=== PATIENT | male | born 1980 | race Caucasian/White ===

== ENCOUNTER 2018-01-13 07:23 | Emergency (ER) | payer OTHER ==
[2018-01-13 07:29] VITALS: BP 140/92
[2018-01-13] MEDS ORDERED: CLINDAMYCIN HCL 150 MG CAPSULE PO ONE (08:33)
--- NOTE | 2018-01-13 08:39 | ER Document Report ---
ED General - General Chief Complaint: Jaw Pain Stated Complaint: JAW PAIN Time Seen by Provider: 01/13/18 08:02 TRAVEL OUTSIDE OF THE [place] IN LAST 30 DAYS: No - HPI Patient complains to provider of: Right jaw pain Notes: Patient coming in for evaluation of rectal pain. Patient states approximately a week ago had a small pustule on the angle of the mandible on the right side that he tried to express pus himself. Patient states since that time increased swelling greatly increased over the last 24 hours with pain going up the rest of his face and down the rest of his neck. Patient denies any fevers chills nausea vomiting diarrhea. Patient denies any recent dental work. Denies any recent antibiotics. Patient resting comfortably on my evaluation states slight dry mouth no other critical pathology. - Related Data Allergies/Adverse Reactions: No Known Allergies Allergy (Verified 01/13/18 07:24) Past Medical History - Social History Smoking Status: Current Every Day Smoker Chew tobacco use (# tins/day): No Frequency of alcohol use: Occasional Drug Abuse: Marijuana Family History: Reviewed & Not Pertinent Patient has suicidal ideation: No Patient has homicidal ideation: No Renal/ Medical History: Denies: Hx Peritoneal Dialysis Past Surgical History: Reports: Hx Orthopedic Surgery Review of Systems - Review of Systems Constitutional: No symptoms reported EENT: Other - Right jaw pain Cardiovascular: No symptoms reported Respiratory: No symptoms reported Gastrointestinal: No symptoms reported Genitourinary: No symptoms reported Male Genitourinary: No symptoms reported Musculoskeletal: No symptoms reported Skin: No symptoms reported Hematologic/Lymphatic: No symptoms reported Neurological/Psychological: No symptoms reported Physical Exam - Vital signs Vitals: Temp Pulse Resp BP Pulse Ox 98.3 F 89 16 140/92 H 94 01/13/18 07:27 01/13/18 07:27 01/13/18 07:27 01/13/18 07:27 01/13/18 07:27 Interpretation: Normal - General General appearance: Appears well, Alert - HEENT Head: Normocephalic, Atraumatic Eyes: Normal Pupils: PERRL Sinus: Normal Nasal: Normal Mouth/Lips: Other - Patient with a small nodule at the angle of the mandible approximately 4 cm from the mentum of the mandible. Patient small nodule is approximately 0.5 x 0.5 cm in size. Slight erythema no obvious pustule formation. Painful to palpation freely mobile. Patient has a prominence of the right side of [place]'s duct of the submandibular gland there is no tenderness of the submandibular gland prominence no palpable stones this looks to be more likely congenital for the patient there is also slight prominence of the left. Examination the teeth reveal a filling tooth #30 however is is pain to percussion there is no signs of gingival cellulitis no signs of dental abscess. Bedside ultrasound used to evaluate the small nodule no signs of abscess formation or fluid collection is drainable. Possibility of prominent lymph node versus development of a furuncle Mucous membranes: Normal Pharynx: Normal - Respiratory Respiratory status: No respiratory distress Chest status: Nontender Breath sounds: Normal Chest palpation: Normal - Cardiovascular Rhythm: Regular Heart sounds: Normal auscultation Murmur: No - Abdominal Inspection: Normal Distension: No distension Bowel sounds: Normal Tenderness: Nontender Organomegaly: No organomegaly - Back Back: Normal, Nontender - Extremities General upper extremity: Normal inspection, Nontender, Normal color, Normal ROM , Normal temperature General lower extremity: Normal inspection, Nontender, Normal color, Normal ROM , Normal temperature, Normal weight bearing. No: Kristina's sign - Neurological Neuro grossly intact: Yes Cognition: Normal Orientation: AAOx4 Tonya Coma Scale Eye Opening: Spontaneous Tonya Coma Scale Verbal: Oriented Newborn Coma Scale Motor: Obeys Commands Tonya Coma Scale Total: 15 Speech: Normal Motor strength normal: LUE, RUE, LLE, RLE Sensory: Normal - Psychological Associated symptoms: Normal affect, Normal mood - Skin Skin Temperature: Warm Skin Moisture: Dry Skin Color: Normal Course - Re-evaluation Re-evalutation: 01/13/18 14:55 Possibility of developing underlying infection. Troponin less than. We will go ahead and cover the patient with clindamycin and concerns the patient states he discharged to manually express pus from a recent pustule or pimple. Patient will be discharged home follow-up primary care physician. Natanael airway compromise patient says the signs of early sepsis. - Vital Signs Vital signs: Temp Pulse Resp BP Pulse Ox 98.3 F 89 16 140/92 H 94 01/13/18 07:27 01/13/18 07:27 01/13/18 07:27 01/13/18 07:27 01/13/18 07:27 Discharge - Discharge Clinical Impression: Furuncle Disposition: HOME, SELF-CARE Instructions: Family Physicians / Practices, Folliculitis ([facility]), Lymphadenopathy ([facility]) Additional Instructions: Your evaluation today reveals what looks to be a prominent lymph node on the right side of your face causing some swelling more likely this is from your recent home treatment of what sounds like to be developing folliculitis or small little pustule on that side. Am concerned that you may have an underlying infection of the lymph nodes at this time there is no abscess formation or new fluid to be drained on bedside ultrasound. I recommended we start you on antibiotic of clindamycin. Please continue to monitor the area avoid any shaving. Would recommend no further self treatment of any small pustules. If her symptoms continue to worsen would recommend returning to the ER following up with her primary care doctors listed. For pain control would recommend taking Motrin 600 mg along with Tylenol 650 mg 3 times a day. For severe pain he may use the Ultram provided. Prescriptions: Clindamycin HCl 150 mg PO QID 7 Days capsule Tramadol HCl [Ultram 50 mg Tablet] 50 mg PO ASDIR PRN #14 tablet PRN Reason: Forms: Return to Work
== END 2018-01-13 08:49 | disposition home or self-care (01) ==
LOC: ER 07:23
DX: L02.92 Furuncle, unspecified (principal); R68.84 Jaw pain; F17.200 Nicotine dependence, unspecified, uncomplicated; F12.10 Cannabis abuse, uncomplicated
CPT/HCPCS: 99283

== ENCOUNTER 2018-01-27 17:28 | Emergency (ER) | payer OTHER ==
[2018-01-27 18:20] VITALS: BP 142/87
--- NOTE | 2018-01-27 19:47 | ER Document Report ---
HPI - HPI Patient complains to provider of: Lump to right lower jaw Onset: Other - 1 month Onset/Duration: Persistent Quality of pain: Achy Pain Level: 3 Context: Patient presents complaining of a lump to the right lower jaw that has been there for the past month. Patient states he was here 2 weeks ago and the area was much larger and patient was placed on antibiotics. Patient states that the swelling has gone down although he has a localized nodular lesion. Patient is concerned about possible cancer. Patient denies any fever or dental pain. Associated Symptoms: Other - Lump to right lower jaw. denies: Fever Exacerbated by: Denies Relieved by: Denies Similar symptoms previously: No Recently seen / treated by doctor: Yes - ROS ROS below otherwise negative: Yes Systems Reviewed and Negative: Yes All other systems reviewed and negative - CONSTITUTIONAL Constitutional: DENIES: Fever, Chills - EENT EENT: DENIES: Sore Throat, Ear Pain - RESPIRATORY Respiratory: DENIES: Coughing - GASTROINTESTINAL Gastrointestinal: DENIES: Nausea, Patient vomiting - MUSCULOSKELETAL Musculoskeletal: DENIES: Back Pain, Neck Pain - DERM Skin Color: Normal Skin Problems: None Past Medical History - General Information source: Patient - Social History Smoking Status: Current Every Day Smoker Chew tobacco use (# tins/day): No Smoking Education Provided: Yes Frequency of alcohol use: Occasional Drug Abuse: Marijuana Occupation: [employer] Family History: Reviewed & Not Pertinent Patient has suicidal ideation: No Patient has homicidal ideation: No - Medical History Medical History: Negative Renal/ Medical History: Denies: Hx Peritoneal Dialysis Past Surgical History: Reports: Hx Orthopedic Surgery Vertical Provider Document - CONSTITUTIONAL Agree With Documented VS: Yes Exam Limitations: No Limitations General Appearance: WD/WN, No Apparent Distress - INFECTION CONTROL TRAVEL OUTSIDE OF THE [place] IN LAST 30 DAYS: No - HEENT HEENT: Atraumatic, Normocephalic Mouth Diagram: 1 - Filling, dental caries Notes: Patient with mildly tender nonmobile nodular lesion to right mandible area, normal skin color and temperature overlying affected area - NECK Neck: Normal Inspection, Supple. negative: Lymphadenopathy-Left, Lymphadenopathy-Right - RESPIRATORY Respiratory: Breath Sounds Normal, No Respiratory Distress - CARDIOVASCULAR Cardiovascular: Regular Rate, Regular Rhythm - BACK Back: Normal Inspection - MUSCULOSKELETAL/EXTREMETIES Musculoskeletal/Extremeties: MAEW - NEURO Level of Consciousness: Awake, Alert, Appropriate Motor/Sensory: No Motor Deficit - DERM Integumentary: Warm, Dry Course - Re-evaluation Re-evalutation: 01/27/18 19:[address] Guardado regarding patient presentation and management. Advises ct imaging of area 01/28/18 Patient nontoxic in appearance. Patient without any trismus, sublingual or submental swelling. No potential airway compromise. Patient nontoxic in appearance. Patient encouraged to follow-up with dental provider for further management. - Vital Signs Vital signs: Temp Pulse Resp BP Pulse Ox 98.8 F 83 16 142/87 H 100 01/27/18 18:19 01/27/18 18:19 01/27/18 18:19 01/27/18 18:19 01/27/18 18:19 - Laboratory Result Diagrams: 01/27/18 20:17 01/27/18 20:17 Laboratory results interpreted by me: 01/27/18 21:38 Labs- Entire Visit 01/27/18 01/27/18 20:17 20:17 WBC 10.7 H RBC 5.22 Hgb 17.0 Hct 49.1 MCV 94 MCH 32.7 MCHC 34.7 RDW 13.9 Plt Count 277 Seg Neutrophils % 61.3 Lymphocytes % 22.4 Monocytes % 9.1 Eosinophils % 6.2 H Basophils % 1.0 Absolute Neutrophils 6.5 Absolute Lymphocytes 2.4 Absolute Monocytes 1.0 Absolute Eosinophils 0.7 H Absolute Basophils 0.1 Sodium 140.7 Potassium 4.3 Chloride 103 Carbon Dioxide 27 Anion Gap 11 BUN 11 Creatinine 0.82 Est GFR ( Amer) > 60 Est GFR (Non-Af Amer) > 60 Glucose 98 Calcium 9.7 - Diagnostic Test Radiology reviewed: Reports reviewed Discharge - Discharge Clinical Impression: Infected dental caries Condition: Stable Disposition: HOME, SELF-CARE Instructions: Augmentin ([facility]), Dentist, Dental Infection or Abscess ([facility]) Additional Instructions: Return immediately for any new or worsening symptoms Followup with your primary care provider, call tomorrow to make a followup appointment Follow-up with a dental care provider for further evaluation Prescriptions: Amox Tr/Potassium Clavulanate [Augmentin 875-125 Tablet] 1 tab PO BID 10 Days tablet Naproxen [Naprosyn 250 Nmg Tablet] 1 tab PO BID #14 tablet Forms: Smoking Cessation Education Referrals: [facility] [Provider Group] - Follow up as needed
[2018-01-27 20:37] LABS: ABSOLUTE BASOPHILS # (AUTO) 0.1 10^3/uL (0.0-0.2); ABSOLUTE EOSINOPHILS # (AUTO) 0.7 10^3/uL (0.0-0.6); ABSOLUTE LYMPHOCYTES (AUTO) 2.4 10^3/uL (0.5-4.7); ABSOLUTE NEUT (AUTO) 6.5 10^3/uL (1.7-8.2); EOSINOPHILS % (AUTO) 6.2 % (0-6); HEMATOCRIT 49.1 % (37.9-51.0); LYMPHOCYTES % (AUTO) 22.4 % (13-45); MEAN CORPUSCULAR HEMOGLOBIN 32.7 pg (27.0-33.4); MEAN CORPUSCULAR HGB CONC 34.7 g/dL (32.0-36.0); MEAN CORPUSCULAR VOLUME 94 fl (80-97); MONOCYTES % (AUTO) 9.1 % (3-13); PLATELET COUNT 277 10^3/uL (150-450); RED BLOOD COUNT 5.22 10^6/uL (4.35-5.55); RED CELL DISTRIBUTION WIDTH 13.9 % (11.5-14.0); SEGMENTED NEUTROPHILS % (AUTO) 61.3 % (42-78); TOTAL CELLS COUNTED % (AUTO) 100 %; WHITE BLOOD COUNT 10.7 10^3/uL (4.0-10.5)
--- NOTE | 2018-01-27 20:48 | RADIOLOGY REPORT (SQ) ---
EXAM DESCRIPTION: CT SOFT TISSUE NECK WITH COMPLETED DATE/TIME: 01/27/2018 8:38 pm REASON FOR STUDY: swelling to R mandible COMPARISON: None. TECHNIQUE: Post IV contrasted scanning from skull base through lung apices with review of bone, soft tissue and lung windows. Reconstructed coronal and sagittal MPR images reviewed. All images stored on PACS. All CT scanners at this facility use dose modulation, iterative reconstruction, and/or weight based d osing when appropriate to reduce radiation dose to as low as reasonably achievable (ALARA). [facility]: Dose Right [facility]: CareDose [facility]: Dose Right [facility]: Teradose 4D [facility]: Gemfire CONTRAST TYPE AND DOSE: contrast/concentration: Isovue 350.00 mg/ml; Total Contrast Delivered: 75.0 ml; Total Saline Delivered: 55.0 ml RENAL FUNCTION: None required. The patient is less than 50 years old. RADIATION DOSE: CT Rad equipment meets quality standard of care and radiation dose reduction techniq ues were employed. CTDIvol: 12.4 mGy. DLP: 455 mGy-cm. . LIMITATIONS: None. FINDINGS: SKULL BASE: Intact. Inferior brain parenchyma unremarkable MAJOR SALIVARY GLANDS: No solid or cystic masses. No inflammatory changes. LYMPHADENOPATHY: No adenopathy. MUCOSAL MASSES OR ASYMMETRY: No mucosal masses or asymmetry. LARYNX/CORDS: No abnormal findings. VASCULAR STRUCTURES: The major vessels are patent. LUNG APICES: Clear. BONES: Intact. THYROID: Normal size. No masses. PARANASAL SINUSES: Clear. OTHER: There is soft tissue swelling over the right angle of mandible, with skin thickening and edema in the subcutaneous tissues. Periapical tooth root lucency around the 2nd molar along the right man dible. Facial cellulitis related to odontogenic infection suspected. There is no well-circumscribed Buccal abscess or soft tissue abscess. IMPRESSION: Periapical tooth root lucency along the right lower 2nd molar. Soft tissue swelling and cellulitis along the right facial soft tissues near the right mandibular angle without discrete absc ess. TECHNICAL DOCUMENTATION: JOB ID: [id number] Quality ID # [id number]: Final reports with documentation of one or more dose reduction techniques (e.g., Au tomated exposure control, adjustment of the mA and/or kV according to patient size, use of iterative reconstruction technique) 2010 [employer]- All Rights Reserved Reading location - IP/workstation name: [email or web address]
[2018-01-27 21:11] LABS: ANION GAP 11 (5-19); BLOOD UREA NITROGEN 11 mg/dL (7-20); CALCIUM 9.7 mg/dL (8.4-10.2); CARBON DIOXIDE 27 mmol/L (22-30); CHLORIDE 103 mmol/L (98-107); GLUCOSE 98 mg/dL (75-110); POTASSIUM 4.3 mmol/L (3.6-5.0); SODIUM 140.7 mmol/L (137-145)
[2018-01-27] MEDS ORDERED: AMOXICILLIN TR/POT CLAVULANATE 500-125 MG TAB PO ONE (21:38)
== END 2018-01-27 22:40 | disposition home or self-care (01) ==
LOC: ER 17:28
DX: K02.9 Dental caries, unspecified (principal); K04.7 Periapical abscess without sinus; R22.0 Localized swelling, mass and lump, head; F17.200 Nicotine dependence, unspecified, uncomplicated
CPT/HCPCS: 36415; 70491; 80048; 85025; 99284